=== PATIENT | male | born 1960 | race Caucasian/White ===

== ENCOUNTER 2025-10-23 09:10 | Outpatient (AMB) | payer OTHER, SELFPAY ==
--- NOTE | 2025-10-23 09:38 | A.PHYSOV_ITS ---
Vital Signs 10/23/25 09:39 Height 5 ft 8 in Weight 214 lb BMI 32.5 Intake Visit Reasons: 3M followup Intake Note: Patient is a 65 year old male in office today for a 3 month follow up visit. 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 His last procedure was a right-sided L5-S1 interlaminar epidural injection on July 04, 2025, for right-sided sciatic pain. The in jection provided fantastic relief, but the pain has been acting up again for the past few weeks, now presenting as pain across his lower back without radiation down the leg. A lumbar spine MRI from April 02, 2025, demonstrated diffuse degenerative changes with mild to moderate central canal stenosis at L5-S1, which was correlated with his symptomatic presentation, including a positive shopping cart sign at the time. He also has a history of receiving regular bilateral thumb CMC joint injections, which have provided excellent relief. His last thumb injections were on June 09, 2025, and he reports his hands are now so bad that he is in significant pain and requires repeat injections. His past surgical history is significant for a right total hip arthroplasty and a left total knee arthroplasty, and he is very happy with the outcomes of both surgeries. Pain Description - Back Pain: Reports recurrent low back pain for the past few weeks after a period of significant relief from an L5-S1 epidural injection in June. - Location: The pain is now located across the lower back. - Radiation: The pain no longer radiates down the leg. - Hand Pain: Reports severe pain in his hands, specifically the thumbs, stating, my hands are so bad and I'm dying. Results - Imaging: - Lumbar Sacral Spine MRI (April 02, 2025): Demonstrated diffuse degenerative changes with mild to moderate central canal stenosis at the L5-S1 level. [facility] Medical History (Updated 10/23/25 @ 12:51 by Cyrus Calixto DO) Lumbar radiculitis Spinal stenosis, lumbar region with neurogenic claudication Osteoarthritis of carpometacarpal (CMC) joint of left thumb Arthritis of carpometacarpal (CMC) joint of right thumb Surgical History (Updated 10/18/25 @ 12:50 by Subha Alfred MA) History of hernia repair History of hip replacement History of knee surgery Status post gastric banding Social History (Updated 10/23/25 @ 09:42 by Subha Alfred MA) Alcohol intake: current Alcohol intake frequency: does not drink Patient Tobacco Use Status: Current everyday Tobacco user Current occupational status: retired and disabled Review of Systems Narrative Review of Systems - Musculoskeletal: Reports chronic polyarticular pain, severe bilateral thumb pain, and recurrent low back pain. Patient denies any change in bowel bladder habits. She denies any fever or chills. - All other systems not discussed and are considered negative. Physical Exam Exam Exam: Physical Exam - Extremities: Visual inspection of the hands reveals arthritic changes in little finger distal interphalangeal joints. Pain with palpation of bilateral thumb carpometacarpal joint with hypertrophy of both joints. Lumbar extension was restricted. Gait was without antalgia. Neurological examination was nonfocal. Heel walk and toe walk were not tested. Forward flexed posture. Vital Signs: BMI result Body Mass Index 32.5 Office Procedures AMB Thumb CMC Injection AMB Thumb Injection Details: Right thumb CMC joint was palpated and marked. Skin was cleansed with alcohol. 1.5 in 25 gauge hypodermic needle was introduced percutaneously and advanced into the joint. After negative aspiration for blood 1 in of solution containing 20 mg of triamcinolone and 2% lidocaine were injected without resistance. The identical procedure was repeated on the left side. Thumb CMC Injection - : Bilateral All charges added?: Procedure code (CPT) selection complete Office Meds Kenalog 40 mg/mL suspension for injection Performing Provider: Cyrus Calixto DO Performing Location: [facility] Administered by: Cyrus Calixto DO on 10/23/25 12:46 Dose Route Admin Location Dispensed Lot Number Expiration Date [employer] Water Sponger 40 mg intra-articular 1 mL [id number] [employer] Total Dispensed Waste 1 mL 0 % lidocaine (PF) 20 mg/mL (2 %) injection solution Performing Provider: Cyrus Calixto DO Performing Location: [facility] Administered by: Cyrus Calixto DO on 10/23/25 12:46 Dose Route Admin Location Dispensed Lot Number Expiration Date [facility] Water Sponger 20 mg intra-articular 5 mL [id number] [employer] Total Dispensed Waste 5 mL 80 % Assessment & Plan Assessment & Plan (1) Arthritis of carpometacarpal (CMC) joint of right thumb: Code(s): M18.11 - Unilateral primary osteoarthritis of first carpometacarpal joint, right hand Category: Medical (2) Osteoarthritis of carpometacarpal (CMC) joint of left thumb: Code(s): M18.12 - Unilateral primary osteoarthritis of first carpometacarpal joint, left hand Category: Medical (3) Spinal stenosis, lumbar region with neurogenic claudication: Code(s): M48.062 - Spinal stenosis, lumbar region with neurogenic claudication Category: Medical (4) Lumbar radiculitis: Code(s): M54.16 - Radiculopathy, lumbar region Category: Medical Plan Pain Management - Analgesia: The patient receives excellent relief from regular bilateral thumb CMC joint injections and had fantastic relief from a right-sided L5-S1 interlaminar epidural injection received in June 2025. - Activities of Daily Living: Previous symptoms included a positive shopping cart sign, indicating pain with walking that is relieved by leaning forward. - Affect: Reports significant distress from his current hand pain. - Adverse Effects: No adverse effects from prior procedures were reported. - Aberrant Drug Related Behaviors: No aberrant drug-related behaviors were discussed. Plan Patient was informed and verbally consented to the use of an ambient scribe for clinic note documentation during this visit. 1. Bilateral Thumb Carpometacarpal (Cmc) Joint Arthritis The patient reports severe pain in his thumbs, as the relief from his last CMC joint injections in May 2025 has worn off. He is also noted to have arthritic changes in his pinky fingers. Plan is to proceed with bilateral thumb CMC joint injections today. He will follow-up in three months for his hands. 2. Lumbar Spinal Stenosis The patient reports recurrence of low back pain over the past few weeks after experiencing fantastic relief from a right-sided L5-S1 interlaminar epidural injection in June 2025. The current pain is localized to the lower back and does not radiate down the leg as it did previously. The plan is to schedule a repeat right-sided L5-S1 interlaminar epidural injection in November, prior to his vacation. The office staff will call him to arrange the procedure. Risks and benefits of the procedure were discussed with the patient. Potential alternative measures were also discussed. Patient understands that the procedure is completely elective. Potential side effects associated with injectable medications were discussed. All questions were answered to the patient's satisfaction. Discussion Notes I discussed with the patient his recurrent low back pain and severe thumb pain. We reviewed that the back injection in June provided excellent but temporary relief, and his symptoms have now returned, albeit without the radicular component. I outlined the plan to perform bilateral thumb injections today and to schedule a repeat L5-S1 epidural injection in November before his vacation. I advised him that the scheduling team will contact him to set up the back procedure. He will follow up in three months for his hands. The patient understood and agreed with the plan. Patient Instructions - You will receive injections in both of your thumbs today to help with your pain. - We will schedule another injection for your lower back to be done in November before your vacation. - Our office will call you to set up the appointment for your back injection. - You should return to the clinic in about 3 months for a follow-up on your hands. Orders: Orders AMB Thumb CMC Injection Today M18.11 - Unilateral primary osteoarthritis of fir st carpometacarpal joint, right hand, M18.12 - Unilateral primary osteoarthritis of first carpometacarpal joint, left hand Coding Level of Care Code Est Pt Level 4 (53380) Add On Problem Visit Only Diagnoses Arthritis of carpometacarpal (CMC) joint of right thumb M18.11 Osteoarthritis of carpometacarpal (CMC) joint of left thumb M18.12 Spinal stenosis, lumbar region with neurogenic claudication M48.062 Lumbar radiculitis M54.16 CPT Codes AMB Thumb Injection - Carpal Tunnel Therapeutic Injection - : Bilateral ([id number])
[2025-10-23 09:39] VITALS: BMI 32.5
== END 2025-10-23 10:21 | disposition home or self-care (01) ==
LOC: HO.HPHYS 09:11
PROVIDERS: PCP Internal Medicine; Visit Provider Physical Medicine & Rehabilitation
DX: M18.0 Bilateral primary osteoarthritis of first carpometacarpal joints (principal); M48.062 Spinal stenosis, lumbar region with neurogenic claudication; M54.16 Radiculopathy, lumbar region
CPT/HCPCS: 20600; 99214

== ENCOUNTER → 2025-10-23 09:10 | Outpatient (BNVA) | payer OTHER, SELFPAY | PROVIDERS: PCP Internal Medicine; Visit Provider Physical Medicine & Rehabilitation | DX: M18.11 Unilateral primary osteoarthritis of first carpometacarpal joint, right hand (principal); M18.12 Unilateral primary osteoarthritis of first carpometacarpal joint, left hand; M48.062 Spinal stenosis, lumbar region with neurogenic claudication; M54.16 Radiculopathy, lumbar region | CPT/HCPCS: 20600; 99212; J2003; J3301 ==